=== PATIENT | male | born 1995 ===

== ENCOUNTER 2024-09-02 22:21 | Emergency (ER) | payer OTHER ==
[2024-09-02] MEDS: Diphtheria,Pertussis(Acell),Tetanus Vaccine 0.5 ML Syringe IM ONE (22:35)
[2024-09-02] MEDS: Lidocaine 1% 5 ML VIAL INJECT ONE (22:53)
== END 2024-09-02 23:19 | disposition home or self-care (01) ==
LOC: DL.ED 22:21
DX: S80.852A Superficial foreign body, left lower leg, initial encounter (principal); E66.9 Obesity, unspecified; Z68.43 Body mass index [BMI] 50.0-59.9, adult; Z23 Encounter for immunization; W45.8XXA Other foreign body or object entering through skin, initial encounter
CPT/HCPCS: 90471; 90715; 99283; J2003